=== PATIENT | female | born 1985 | race Caucasian/White ===

== ENCOUNTER 2025-07-11 15:16 | Outpatient (CLI) | payer BC, SELFPAY ==
[2025-07-11 16:44] LABS: Trichomonas No Trichomonas Seen (None Seen)
== END 2025-07-11 15:17 | disposition home or self-care (01) ==
LOC: FBOREF 15:17
PROVIDERS: PCP Family Medicine; Visit Provider Family Medicine
DX: N89.8 Other specified noninflammatory disorders of vagina (principal)
CPT/HCPCS: 87210